=== PATIENT | male | born 1980 | race Caucasian/White ===

== ENCOUNTER 2016-12-27 13:11 | Emergency (ER) | payer SELFPAY ==
[~2016-12-27] VITALS: Ht 170.2 cm; Wt 75.0 kg
[~2016-12-27 13:11] MED LIST: POLY10O OD
[2016-12-27 13:12] VITALS: BP 169/84; PULSE 102; RESP 17; TEMP 97.9; O2SAT 99
[2016-12-27] MEDS ORDERED: TYLE325T PO (13:36)
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
[2016-12-27] MEDS ORDERED: IBUPROFEN 800 MG TAB PO ONE (15:15)
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
== END 2016-12-27 20:10 | disposition left against medical advice (07) ==
LOC: NEPK 13:11
DX: S00.81XA Abrasion of other part of head, initial encounter (principal); R22.0 Localized swelling, mass and lump, head; Z72.0 Tobacco use; V18.4XXA Pedal cycle driver injured in noncollision transport accident in traffic accident, initial encounter; Y93.55 Activity, bike riding; Y92.9 Unspecified place or not applicable; Y99.9 Unspecified external cause status
CPT/HCPCS: 70486; 73130

== ENCOUNTER 2016-12-31 18:13 | Emergency (ER) | payer SELFPAY ==
[~2016-12-31] VITALS: Ht 167.6 cm; Wt 70.0 kg
[~2016-12-31 18:13] MED LIST changes: -POLY10O OD; +TYLE325T PO
[2016-12-31 18:25] VITALS: BP 148/87; PULSE 96; RESP 18; TEMP 97.8; O2SAT 98
== END 2016-12-31 21:26 | disposition left against medical advice (07) ==
LOC: NED 18:13
DX: R68.89 Other general symptoms and signs (principal)
CPT/HCPCS: 99281

== ENCOUNTER 2017-10-07 03:24 | Emergency (ER) | payer SELFPAY ==
[2017-10-07 03:26] VITALS: BP 139/89; PULSE 112; RESP 16; TEMP 97.5; O2SAT 99
[2017-10-07] MEDS ORDERED: ACETAMINOPHEN/HYDROcodone 325 MG/5 MG TAB PO ONE (03:45)
[2017-10-07] MEDS ORDERED: DICL75TA PO (03:46)
[2017-10-07] MEDS ORDERED: NORC5TAB PO (03:46)
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
== END 2017-10-07 04:17 | disposition home or self-care (01) ==
LOC: NEPD 03:24
DX: S52.502A Unspecified fracture of the lower end of left radius, initial encounter for closed fracture (principal); F17.210 Nicotine dependence, cigarettes, uncomplicated; W17.89XA Other fall from one level to another, initial encounter; Y93.55 Activity, bike riding
CPT/HCPCS: 29125; 73110